=== PATIENT | female | born 1940 | race Caucasian/White ===

== ENCOUNTER 2021-12-31 20:04 | Observation (INO) ==
[2021-12-31] MEDS ORDERED: MoRPHine SULFATE 2 MG/ML CARP IV PRN ×2 (20:21→23:55)
--- NOTE | 2021-12-31 20:24 | Emergency Department Note ---
Impression & Plan Trochanteric fracture of left femur, Fall ED Provider Note NAME: DEV DIGGS AGE: 81 SEX: F : 1940 ARRIVES VIA: Walk-In INFORMANT: Patient, ED PROVIDER(S): Jatinder Larios MD Chief Complaint: Pain, med express referral HPI: Presents due to concern for fall and possible hip fracture as a referral from [facility]. The patient states that she was showing somebody a mower for sale when her dog was out and about she tried to control the dog and her hand got caught in the collar and was pulled to the ground. The patient states that she truck struck her left hip. The patient was slightly immaturely thereafter but did have some difficulty with walking and states that she essentially sat down while trying to move up the stairs. Patient does complain of left hip pain. The patient denies any fevers chills or chest pains. Patient states that she tested positive for COVID on December 24 but otherwise is asymptomatic. Patient denies any nausea vomiting or diarrhea. Patient did not take anything for pain prior to arrival but did present to [employer] where she had an x-ray completed and she was told that she has a hip fracture. ROS: See HPI for pertinent positives and negatives. A total of 10 systems were reviewed and otherwise negative. Past medical history: See below Surgical history: See below Social history: See below Physical Exam: GENERAL: NAD, wearing a mask, non-toxic. EYE EXAM: Normal conjunctiva. PERRL, no anisocoria and EOM's grossly intact w/o pain. NECK: Supple, no nuchal rigidity, no adenopathy, non-tender. No signs of meningismus. LUNGS: Clear to auscultation. Normal chest wall mechanics. HEART: NSR, no MRG. ABDOMEN: Abdomen soft, non-tender, normo-active bowel sounds, no masses, no rebound or guarding. BACK: No CVA TTP. SKIN: No rashes and no bruising. UPPER EXTREMITIES: Upper extremities are grossly normal. LOWER EXTREMITIES: Mild pain over the left hip, no obvious shortening, neurovascular intact distally with good left DP pulse. NEURO EXAM: A&O x3, cranial nerves II-XII grossly intact, normal speech, moves all 4 extremities on command w/o issue. Differential diagnoses: Fracture, subluxation, dislocation, contusion, ligamentous injury, neurovascular, compartment syndrome, rhabdomyolysis, as well as other pathologies. Course: Patient was seen and evaluated the bedside. Full history physical exam was performed. EKG interpreted by me Imaging Studies: Left hip x-ray Superior trochanteric fracture Cardiac monitoring: An order was placed for continuous cardiac monitoring. The monitor shows a rate of 86 with sinus rhythm. MDM: Patient was seen due to concern for hip pain. Blood work was obtained along with hip x-ray. Patient was treated with IV pain medication. Patient is awake and a 10.9 with a normal H&H and platelet count. The patient's kidney function is unremarkable. The patient is COVID-positive. X-ray does show a likely superior trochanteric fracture. I did speak the on-call orthopedist Dr. Cline who stated this was likely nonoperative the patient should be toe- touch weightbearing and that she can follow-up in the office within a week if the patient would choose to go home. Patient does live by her self and states that her home is on 7 levels. I did offer inpatient versus close outpatient follow-up. The patient would prefer inpatient treatment and pain control at this time. I did speak with the on-call hospitalist Dr. Estevez and the patient was admitted to the medicine service. Past Med/Surg History Medical History HLD (hyperlipidemia) Surgical History No pertinent past surgical history Social History Smoking Status: Unknown if ever smoked Preferred Language: Kinyarwanda Feels Safe at Home: Yes Allergies Allergies Allergy/AdvReac Type Severity Reaction Status Date / Time adhesive tape Allergy Rash Verified 12/31/21 20:26 celecoxib [From Celebrex] Allergy Hives Verified 12/31/21 20:26 Home Meds Home Medications Medication Instructions Recorded Confirmed rosuvastatin 40 mg tablet (Crestor) 40 mg PO QPM 12/31/21 12/31/21 Results & Data (ED) Vital Signs Vital Signs - 24 hr 12/31/21 20:12 12/31/21 20:24 Temperature 37.0 C Temperature Source Oral Pulse Rate 89 Pulse Rate [Apical] 83 Respiratory Rate 20 16 Respiratory Effort / Characteristics Non-Labored Spontaneous Non-Labored Spontaneous Respiratory Depth Normal Normal Respiratory Pattern Regular Blood Pressure 163/112 H Blood Pressure [Right Arm] 163/112 H Blood Pressure Mean 129 Blood Pressure Mean [Right Arm] 129 Blood Pressure Position [Right Arm] Sitting Pulse Oximetry 95 95 Oxygen Delivery Method Room Air Room Air Sepsis New/Unexplained Change in Mental Status N/A Sepsis Action Taken by Nursing No Action Required Home Medications Current Medication List: was personally reviewed by me Laboratory Data Attestation: I reviewed the patient's lab results. Result diagrams: 12/31/21 20:12/31/21 20: Lab Results 12/31/21 12/31/21 12/31/21 Range/Units ::: WBC 10.94 H (4.8-10.8) K/uL RBC 5.23 (4.2-5.4) M/uL Hgb 15.6 (12.0-16.0) g/dL Hct 44.4 (37-47) % MCV 84.9 (80-100) fL MCH 29.8 (25-34) pg MCHC 35.1 (32-36) g/dL RDW Std Deviation 39.8 (36.4-46.3) fL RDW Coeff of Tong 12.7 (11.5-14.5) % Plt Count 199 (130-400) K/uL MPV 10.7 H (7.4-10.4) fL Immature Gran % (Auto) 0.4 % Neut % (Auto) 80.7 % Lymph % (Auto) 12.5 % [place] % (Auto) 6.2 % Eos % (Auto) 0.1 % Baso % (Auto) 0.1 % Neut # (Auto) 8.83 H (1.4-6.5) K/uL Lymph # (Auto) 1.37 (1.2-3.4) K/uL [place] # (Auto) 0.68 H (0.11-0.59) K/uL Eos # (Auto) 0.01 (0-0.5) K/uL Baso # (Auto) 0.01 (0-0.2) K/uL Immature Gran # (Auto) 0.04 H (0.00-0.02) K/uL PT 10.9 (9.0-12.0) Seconds INR 1.0 (0.9-1.1) APTT 26.7 (21.0-31.0) Seconds PTT Ratio 1.0 Sodium 142 (136-145) mmol/L Potassium 3.8 (3.5-5.1) mmol/L Chloride 107 (98-107) mmol/L Carbon Dioxide 26 (21-32) mmol/L Anion Gap 9 (3-11) BUN 21 (6-23) mg/dl Creatinine 0.78 (0.6-1.2) mg/dl Est Cr Clr Drug Dosing Not Reportable Est GFR ( Amer) 83.8 ml/min Est GFR (Non-Af Amer) 72.3 ml/min BUN/Creatinine Ratio 26.9 H (10-20) Glucose 108 H (70-99(Fasting)) mg/dl Calcium 9.7 (8.5-10.1) mg/dl Total Bilirubin 1.3 H (0.2-1.0) mg/dl AST 22 (13-39) U/L ALT 32 (7-52) U/L Alkaline Phosphatase 48 (34-104) U/L Total Protein 7.4 (6.0-8.3) gm/dl Albumin 4.6 (3.4-5.0) gm/dl Globulin 2.8 (2.5-4.0) gm/dl Albumin/Globulin Ratio 1.6 (0.9-2) SARS-CoV-2, RNA, NAAT (NEGATIVE) 12/31/21 Range/Units 20:35 WBC (4.8-10.8) K/uL RBC (4.2-5.4) M/uL Hgb (12.0-16.0) g/dL Hct (37-47) % MCV (80-100) fL MCH (25-34) pg MCHC (32-36) g/dL RDW Std Deviation (36.4-46.3) fL RDW Coeff of Tong (11.5-14.5) % Plt Count (130-400) K/uL MPV (7.4-10.4) fL Immature Gran % (Auto) % Neut % (Auto) % Lymph % (Auto) % [place] % (Auto) % Eos % (Auto) % Baso % (Auto) % Neut # (Auto) (1.4-6.5) K/uL Lymph # (Auto) (1.2-3.4) K/uL [place] # (Auto) (0.11-0.59) K/uL Eos # (Auto) (0-0.5) K/uL Baso # (Auto) (0-0.2) K/uL Immature Gran # (Auto) (0.00-0.02) K/uL PT (9.0-12.0) Seconds INR (0.9-1.1) APTT (21.0-31.0) Seconds PTT Ratio Sodium (136-145) mmol/L Potassium (3.5-5.1) mmol/L Chloride (98-107) mmol/L Carbon Dioxide (21-32) mmol/L Anion Gap (3-11) BUN (6-23) mg/dl Creatinine (0.6-1.2) mg/dl Est Cr Clr Drug Dosing Est GFR ( Amer) ml/min Est GFR (Non-Af Amer) ml/min BUN/Creatinine Ratio (10-20) Glucose (70-99(Fasting)) mg/dl Calcium (8.5-10.1) mg/dl Total Bilirubin (0.2-1.0) mg/dl AST (13-39) U/L ALT (7-52) U/L Alkaline Phosphatase (34-104) U/L Total Protein (6.0-8.3) gm/dl Albumin (3.4-5.0) gm/dl Globulin (2.5-4.0) gm/dl Albumin/Globulin Ratio (0.9-2) SARS-CoV-2, RNA, NAAT POSITIVE A* (NEGATIVE) Administered Medications Discontinued Medications Morphine Sulfate (Morphine Sulfate 4 Mg/Ml 1 Ml Carp\Vial) 4 mg IV NOW STA Stop: 12/31/21 21:49 Last Admin: 12/31/21 22:00 Dose: 4 mg Documented by: [id number] Discharge Plan Visit Data Chief Complaint: Hip Pain Stated Complaint: FRACTURED R HIP, REF BY [employer] ED Provider: Jatinder Larios Discharge Problem: Trochanteric fracture of left femur, Fall Forms Stand Alone Forms: [employer] Prescriptions Prescriptions: No Action rosuvastatin [Crestor] 40 mg tablet 40 mg PO QPM RF: 0 Referrals Referrals: PCP,NO [Primary Care Provider] -
[2021-12-31 20:39] LABS: Basophils # (auto) 0.01 K/uL (0-0.2); Basophils % (auto) 0.1 %; Eosinophils # (auto) 0.01 K/uL (0-0.5); Eosinophils % (auto) 0.1 %; Hematocrit (blood only) 44.4 % (37-47); Hemoglobin 15.6 g/dL (12.0-16.0); Immature Granulocytes # (auto) 0.04 K/uL (0.00-0.02); Immature Granulocytes % (auto) 0.4 %; Lymphocytes # (auto) 1.37 K/uL (1.2-3.4); Lymphocytes % (auto) 12.5 %; Mean Corpuscular Hemoglobin 29.8 pg (25-34); Mean Corpuscular Hgb Conc 35.1 g/dL (32-36); Mean Corpuscular Volume 84.9 fL (80-100); Mean Platelet Volume 10.7 fL (7.4-10.4); Monocytes # (auto) 0.68 K/uL (0.11-0.59); Monocytes % (auto) 6.2 %; Neutrophils # (auto) 8.83 K/uL (1.4-6.5); Neutrophils % (auto) 80.7 %; Platelet Count 199 K/uL (130-400); RDW Coefficient of Variation 12.7 % (11.5-14.5); RDW Standard Deviation 39.8 fL (36.4-46.3); Red Blood Count 5.23 M/uL (4.2-5.4); White Blood Count 10.94 K/uL (4.8-10.8)
[2021-12-31 20:53] LABS: Alanine Aminotransferase 32 U/L (7-52); Albumin Globulin Ratio 1.6 (0.9-2); Albumin Level 4.6 gm/dl (3.4-5.0); Alkaline Phosphatase 48 U/L (34-104); Anion Gap 9 (3-11); Aspartate Aminotransferase 22 U/L (13-39); BUN Creatinine Ratio 26.9 (10-20); Bilirubin,Total 1.3 mg/dl (0.2-1.0); Blood Urea Nitrogen 21 mg/dl (6-23); Calcium 9.7 mg/dl (8.5-10.1); Carbon Dioxide 26 mmol/L (21-32); Chloride 107 mmol/L (98-107); Est GFR (African American) 83.8 ml/min; Est GFR (Non-African American) 72.3 ml/min; Globulin 2.8 gm/dl (2.5-4.0); Glucose 108 mg/dl (70-99(Fasting)); Potassium 3.8 mmol/L (3.5-5.1); Sodium 142 mmol/L (136-145); Total Protein 7.4 gm/dl (6.0-8.3)
[2021-12-31 20:56] LABS: Partial Thromboplastin Time 26.7 Seconds (21.0-31.0); Prothrombin Time 10.9 Seconds (9.0-12.0)
[2021-12-31] MEDS ORDERED: MoRPHine SULFATE 4 MG/ML 1 ML CARP\\VIAL IV STA ×2 (21:48→23:52)
--- NOTE | 2021-12-31 23:51 | History & Physical Report ---
Date of Service December 31, 2021 Assessment & Plan (1) Trochanteric fracture of left femur: Plan: Secondary to fall Situational hypertension Recent COVID-19 infection Hyperlipidemia on statin Rx [facility] consult Re: Traumatic fracture of the left femur (ER provider already in touch with Dr. Morfin. Nonoperative intervention and toe-touch weightbearing left lower lower extremity as per recommendations.) COVID-19 precautions as per current hospital protocol PT OT eval in a.m. DVT prophylaxis per Lovenox subcu Full code Text document was generated using [id number] voice recognition software. It may contain grammatical or spelling errors. Kindly contact undersigned for clarification of any documentation item in question. History of Present Illness Chief Complaint: Fall, left hip pain Primary Care Provider: Dr. Siegel from [place], [place] History obtained from patient and records. Medical history significant for hyperlipidemia. Last week, patient had dry cough and sore throat symptoms. Outpatient COVID-19 test was positive. Patient completed COVID-19 vaccination. Symptoms resolved with conservative management at home. Patient fell to ground as she was trying to control her dog at home. Achy left hip pain, trouble walking. No head trauma, no chest pain, no SOB, no LOC. Patient brought to the ER for evaluation. 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 Allergies Allergy/AdvReac Type Severity Reaction Status Date / Time adhesive tape Allergy Rash Verified 12/31/21 20:26 celecoxib [From Celebrex] Allergy Hives Verified 12/31/21 20:26 Home Medications Medication Instructions Recorded Confirmed Type rosuvastatin 40 mg tablet (Crestor) 40 mg PO QPM 12/31/21 12/31/21 History Past Med/Surg History Medical History HLD (hyperlipidemia) Surgical History No pertinent past surgical history Social History Smoking Status: Never smoker Second Hand Exposure: No; Do You Dip or Chew Tobacco: No; Tobacco Cessation Education Requested by Patient: No Hx Substance Use: No Preferred Language: Ukrainian [employer]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 Beliefs That Will Affect Care: None Current Living Situation: Alone Other Information That Helps Us Care for You: No Feels Safe at Home: Yes Safety Concerns: Feels Safe At This Time Review of Systems Review of Systems: As per HPI, all other systems reviewed and negative Physical Exam Physical Exam: GENERAL: Slightly uncomfortable, slightly anxious, pleasant, looks younger for stated age, no respiratory distress SKIN: Normal color, warm HEENT: [place] palpebral conjunctivae, no ptosis, moist buccal mucosa NECK : Supple, no tenderness CHEST : CTA, no tenderness HEART : RRR, no obvious murmurs ABDOMEN: Some distention, nontender EXTREMITIES : No LE swelling, left hip tenderness NEUROLOGIC : Coherent, no facial asymmetry, gait and stance not assessed Results & Data Results & Data ([facility]) Vital Signs (Past 12 Hours) Vital Signs Temp Pulse Pulse Resp BP BP Pulse Ox 12/31/21 22:04 83 18 163/112 H 98 12/31/21 20:24 83 16 163/112 H 95 12/31/21 20:12 37.0 C 89 20 163/112 H 95 Laboratory Results Laboratory Results WBC 10.94 K/uL (4.8-10.8) H 12/31/21 20: RBC 5.23 M/uL (4.2-5.4) 12/31/21 20: Hgb 15.6 g/dL (12.0-16.0) 12/31/21 20: Hct 44.4 % (37-47) 12/31/21 20: MCV 84.9 fL (80-100) 12/31/21 20: MCH 29.8 pg (25-34) 12/31/21 20: MCHC 35.1 g/dL (32-36) 12/31/21 20: RDW Std Deviation 39.8 fL (36.4-46.3) 12/31/21 20: RDW Coeff of Tong 12.7 % (11.5-14.5) 12/31/21 20: Plt Count 199 K/uL (130-400) 12/31/21 20:22 MPV 10.7 fL (7.4-10.4) H 12/31/21 20: Immature Gran % (Auto) 0.4 % 12/31/21 20: Neut % (Auto) 80.7 % 12/31/21 20: Lymph % (Auto) 12.5 % 12/31/21 20: [place] % (Auto) 6.2 % 12/31/21 20: Eos % (Auto) 0.1 % 12/31/21 20: Baso % (Auto) 0.1 % 12/31/21 20: Neut # (Auto) 8.83 K/uL (1.4-6.5) H 12/31/21 20: Lymph # (Auto) 1.37 K/uL (1.2-3.4) 12/31/21 20: [place] # (Auto) 0.68 K/uL (0.11-0.59) H 12/31/21 20: Eos # (Auto) 0.01 K/uL (0-0.5) 12/31/21 20: Baso # (Auto) 0.01 K/uL (0-0.2) 12/31/21: Immature Gran # (Auto) 0.04 K/uL (0.00-0.02) H 12/31/21 20: PT 10.9 Seconds (9.0-12.0) 12/31/21 20: INR 1.0 (0.9-1.1) 12/31/21 20: APTT 26.7 Seconds (21.0-31.0) 12/31/21 20: PTT Ratio 1.0 12/31/21 20: Sodium 142 mmol/L (136-145) 12/31/21: Potassium 3.8 mmol/L (3.5-5.1) 12/31/21 20: Chloride 107 mmol/L (98-107) 12/31/21 20: Carbon Dioxide 26 mmol/L (21-32) 12/31/21 20: Anion Gap 9 (3-11) 12/31/21 20: BUN 21 mg/dl (6-23) 12/31/21 20: Creatinine 0.78 mg/dl (0.6-1.2) 12/31/21: Est Cr Clr Drug Dosing Not Reportable 12/31/21: Est GFR ( Amer) 83.8 ml/min 12/31/21 20:22 Est GFR (Non-Af Amer) 72.3 ml/min 12/31/21 20:22 BUN/Creatinine Ratio 26.9 (10-20) H 12/31/21 20:22 Glucose 108 mg/dl (70-99(Fasting)) H 12/31/21 20:22 Calcium 9.7 mg/dl (8.5-10.1) 12/31/21 20:22 Magnesium 2.0 mg/dl (1.7-2.4) 12/31/21 20:22 Total Bilirubin 1.3 mg/dl (0.2-1.0) H 12/31/21 20:22 AST 22 U/L (13-39) 12/31/21 20:22 ALT 32 U/L (7-52) 12/31/21 20:22 Alkaline Phosphatase 48 U/L (34-104) 12/31/21 20:22 Total Protein 7.4 gm/dl (6.0-8.3) 12/31/21 20:22 Albumin 4.6 gm/dl (3.4-5.0) 12/31/21 20:22 Globulin 2.8 gm/dl (2.5-4.0) 12/31/21 20:22 Albumin/Globulin Ratio 1.6 (0.9-2) 12/31/21 20:22 SARS-CoV-2, RNA, NAAT POSITIVE (NEGATIVE) A* 12/31/21 20:35 Diagnostic Findings Pelvic x-ray as per my interpretation left greater trochanter fracture EKG as per my interpretation:Rate 80, NSR, normal axis, T wave abnormality septal leads (1) Trochanteric fracture of left femur Encounter type: initial encounter Fracture type: closed Qualified Code(s): S72.102A - Unspecified trochanteric fracture of left femur, initial encounter for closed fracture
[2021-12-31] MEDS ORDERED: PROMETHAZINE HCL 12.5 MG in SODIUM CHLORIDE 0.9% 50 ML IV PRN (23:58)
[2021-12-31] MEDS ORDERED: MoRPHine SULFATE 4 MG/ML 1 ML CARP\\VIAL IV PRN (23:58)
[2022-01-01] MEDS ORDERED: Patient's HEIGHT &/or WEIGHT Needed SCH (01:30)
[2022-01-01] MEDS: oxyCODONE HCL IR 5 MG TAB (IMMEDIATE RELEASE) PO PRN ×2 (02:05→09:18)
--- NOTE | 2022-01-01 07:20 | XRay Report ---
XR hip LT 2V w pelvis CLINICAL HISTORY: Status post fall with reported left hip fracture. COMPARISON STUDY: No previous studies for comparison. TECHNIQUE: AP pelvis and 2 left hip views FINDINGS: Bones: There is evidence for a fracture through the superior aspect of the greater trochanter of the femur. Mild retraction of the fracture fragment is present suggesting mild avulsion. The femoral neck itself is intact. No intertrochanteric fractures identified. There is no lytic or blastic lesion. Joints: The joint spaces are maintained. The bones are in anatomic alignment. Soft tissues: There is no focal soft tissue abnormality. There is no radiopaque foreign body. IMPRESSION: 1. Evidence for a mildly displaced, avulsion fracture involving the superior aspect of the greater tr ochanter of the left femur. 2. No femoral neck fracture is identified. ACT 112: Negative or not required by law. Electronically signed by: Murali Trotter M.D. 01/01/2022 7:18 AM
[2022-01-01] MEDS: ACETAMINOPHEN 325 MG TAB PO PRN ×2 (07:42→21:25)
[2022-01-01] MEDS: ENOXAPARIN INJ 30 MG/0.3 ML SYR SQ SCH (07:44)
--- NOTE | 2022-01-01 09:43 | Orthopedic Consultation ---
Date of Consultation January 01, 2022 Assessment & Plan (1) Trochanteric fracture of left femur: Patient was seen and evaluated by Dr. Cline today. Her x-rays were reviewed and she was found to have a minimally displaced left greater trochanter fracture in acceptable alignment. Plan would be to treat this conservatively for the time being. Advised that she is allowed to do range of motion of her left hip just avoid any abduction or moving her leg away from her body. She can be toe-touch weightbearing with the assistance of crutches or walker. She states she does have crutches at home. We will obtain a physical therapy evaluation today to assess for safety. She can use ice to her left hip which we will order also. She can use Tylenol, Advil and oxycodone as needed for breakthrough pain. From an orthopedic standpoint she can be discharged when she is medically stable. We will have her call the office tomorrow for an appointment in 10 to 14 days for reassessment. She understands and agrees with the plan. All questions were answered. Thank you for this consultation and please call with further questions. Supervising Physician Co-Signing Physician Notes I saw and examined the patient and agree with above note. For this split-shared visit, I was the primary provider. History of Present Illness Reason for Consultation: Left greater trochanter fracture Attending Physician: Anjali Quinonez MD History of Present Illness Patient is a pleasant 81-year-old female who was at her home yesterday and had her [id number] puppy on a leash. Her puppy got excited and pulled on her and she fell onto her left hip. She had immediate pain. She presented to the emergency room for evaluation. She was having trouble weightbearing. X-rays were obtained and she was found to have a left nondisplaced greater trochanter fracture. She was then admitted by the medical service for pain management. We were asked to see her in consultation for treatment recommendations of the fracture. She denies any numbness or tingling in her left leg. She denies any previous problems with the left hip. She denies any other injuries. Allergies Allergy/AdvReac Type Severity Reaction Status Date / Time adhesive tape Allergy Rash Verified 12/31/21 20:26 celecoxib [From Celebrex] Allergy Hives Verified 12/31/21 20:26 Home Medications Medication Instructions Recorded Confirmed Type rosuvastatin 40 mg tablet (Crestor) 40 mg PO QPM 12/31/21 12/31/21 History Patient History Medical History HLD (hyperlipidemia) Surgical History No pertinent past surgical history Social History Smoking Status: Never smoker Second Hand Exposure: No; Do You Dip or Chew Tobacco: No; Tobacco Cessation Education Requested by Patient: No Hx Substance Use: No 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 No distal edema. Distal sensation is normal. She is able to flex her hip actively with some mild discomfort on the outer aspect of her left thigh. She has no tenderness with palpation of the left knee or lower leg. Ankle strength is 5/5. Distal pulses 1+. Nontender throughout the medial or anterior posterior thigh. Just laterally tender to palpation. Skin is healthy. No evidence of ecchymosis. No erythema or warmth. Results & Data ([facility]) Vital Signs (Past 12 Hours) Vital Signs Temp Pulse Pulse Resp BP Pulse Ox 01/01/22 07:37 36.7 C 86 16 150/87 H 96 01/01/22 01:20 36.8 C 86 17 165/85 H 96 01/01/22 00:53 82 18 144/83 H 97 12/31/21 22:04 83 18 163/112 H 98 Laboratory Results 12/31/21 12/31/21 12/31/21 Range/Units 20:35 20:22 20:22 WBC (4.8-10.8) K/uL RBC (4.2-5.4) M/uL Hgb (12.0-16.0) g/dL Hct (37-47) % MCV (80-100) fL MCH (25-34) pg MCHC (32-36) g/dL RDW Std Deviation (36.4-46.3) fL RDW Coeff of Tong (11.5-14.5) % Plt Count (130-400) K/uL MPV (7.4-10.4) fL Immature Gran % (Auto) % Neut % (Auto) % Lymph % (Auto) % [place] % (Auto) % Eos % (Auto) % Baso % (Auto) % Neut # (Auto) (1.4-6.5) K/uL Lymph # (Auto) (1.2-3.4) K/uL [place] # (Auto) (0.11-0.59) K/uL Eos # (Auto) (0-0.5) K/uL Baso # (Auto) (0-0.2) K/uL Immature Gran # (Auto) (0.00-0.02) K/uL PT (9.0-12.0) Seconds INR (0.9-1.1) APTT (21.0-31.0) Seconds PTT Ratio Sodium 142 (136-145) mmol/L Potassium 3.8 (3.5-5.1) mmol/L Chloride 107 (98-107) mmol/L Carbon Dioxide 26 (21-32) mmol/L Anion Gap 9 (3-11) BUN 21 (6-23) mg/dl Creatinine 0.78 (0.6-1.2) mg/dl Est Cr Clr Drug Dosing Not Reportable Est GFR ( Amer) 83.8 ml/min Est GFR (Non-Af Amer) 72.3 ml/min BUN/Creatinine Ratio 26.9 H (10-20) Glucose 108 H (70-99(Fasting)) mg/dl Calcium 9.7 (8.5-10.1) mg/dl Magnesium 2.0 (1.7-2.4) mg/dl Total Bilirubin 1.3 H (0.2-1.0) mg/dl AST 22 (13-39) U/L ALT 32 (7-52) U/L Alkaline Phosphatase 48 (34-104) U/L Total Protein 7.4 (6.0-8.3) gm/dl Albumin 4.6 (3.4-5.0) gm/dl Globulin 2.8 (2.5-4.0) gm/dl Albumin/Globulin Ratio 1.6 (0.9-2) SARS-CoV-2, RNA, NAAT POSITIVE A* (NEGATIVE) 12/31/21 12/31/21 Range/Units 20:22 20:22 WBC 10.94 H (4.8-10.8) K/uL RBC 5.23 (4.2-5.4) M/uL Hgb 15.6 (12.0-16.0) g/dL Hct 44.4 (37-47) % MCV 84.9 (80-100) fL MCH 29.8 (25-34) pg MCHC 35.1 (32-36) g/dL RDW Std Deviation 39.8 (36.4-46.3) fL RDW Coeff of Tong 12.7 (11.5-14.5) % Plt Count 199 (130-400) K/uL MPV 10.7 H (7.4-10.4) fL Immature Gran % (Auto) 0.4 % Neut % (Auto) 80.7 % Lymph % (Auto) 12.5 % [place] % (Auto) 6.2 % Eos % (Auto) 0.1 % Baso % (Auto) 0.1 % Neut # (Auto) 8.83 H (1.4-6.5) K/uL Lymph # (Auto) 1.37 (1.2-3.4) K/uL [place] # (Auto) 0.68 H (0.11-0.59) K/uL Eos # (Auto) 0.01 (0-0.5) K/uL Baso # (Auto) 0.01 (0-0.2) K/uL Immature Gran # (Auto) 0.04 H (0.00-0.02) K/uL PT 10.9 (9.0-12.0) Seconds INR 1.0 (0.9-1.1) APTT 26.7 (21.0-31.0) Seconds PTT Ratio 1.0 Sodium (136-145) mmol/L Potassium (3.5-5.1) mmol/L Chloride (98-107) mmol/L Carbon Dioxide (21-32) mmol/L Anion Gap (3-11) BUN (6-23) mg/dl Creatinine (0.6-1.2) mg/dl Est Cr Clr Drug Dosing Est GFR ( Amer) ml/min Est GFR (Non-Af Amer) ml/min BUN/Creatinine Ratio (10-20) Glucose (70-99(Fasting)) mg/dl Calcium (8.5-10.1) mg/dl Magnesium (1.7-2.4) mg/dl Total Bilirubin (0.2-1.0) mg/dl AST (13-39) U/L ALT (7-52) U/L Alkaline Phosphatase (34-104) U/L Total Protein (6.0-8.3) gm/dl Albumin (3.4-5.0) gm/dl Globulin (2.5-4.0) gm/dl Albumin/Globulin Ratio (0.9-2) SARS-CoV-2, RNA, NAAT (NEGATIVE) Diagnostic Findings XR hip LT 2V w pelvis CLINICAL HISTORY: Status post fall with reported left hip fracture. COMPARISON STUDY: No previous studies for comparison. TECHNIQUE: AP pelvis and 2 left hip views FINDINGS: Bones: There is evidence for a fracture through the superior aspect of the greater trochanter of the femur. Mild retraction of the fracture fragment is present suggesting mild avulsion. The femoral neck itself is intact. No intertrochanteric fractures identified. There is no lytic or blastic lesion. Joints: The joint spaces are maintained. The bones are in anatomic alignment. Soft tissues: There is no focal soft tissue abnormality. There is no radiopaque foreign body. IMPRESSION: 1. Evidence for a mildly displaced, avulsion fracture involving the superior aspect of the greater trochanter of the left femur. 2. No femoral neck fracture is identified. (1) Trochanteric fracture of left femur Encounter type: initial encounter Fracture type: closed Qualified Code(s): S72.102A - Unspecified trochanteric fracture of left femur, initial encounter for closed fracture
--- NOTE | 2022-01-01 15:04 | Electrocardiogram Report ---
Test Reason : Blood Pressure : / mmHG Vent. Rate : 080 BPM Atrial Rate : 080 BPM P-R Int : 160 ms QRS Dur : 080 ms QT Int : 386 ms P-R-T Axes : 052 -09 048 degrees QTc Int : 445 ms Normal sinus rhythm Nonspecific T wave abnormality Abnormal ECG No previous ECGs available Confirmed by Geoff Watson ([id number]) on 01/01/2022 3:03:29 PM Referred By: REFERRED SELF Confirmed By:Geoff Watson
[2022-01-01] MEDS: IBUPROFEN 600 MG TAB PO PRN (16:15)
--- NOTE | 2022-01-01 18:23 | Hospitalist Progress Note ---
Date of Service January 01, 2022 Assessment & Plan (1) Trochanteric fracture of left femur: Plan: #. Trochanteric fracture of left femur Mechanical fall while trying to control her dog at home. Fell on left side, hit left hip. Trouble walking. Admitting hip x-ray positive for mildly displaced, avulsion fracture involving the superior aspect of the greater trochanter of the left femur. Orthopedics evaluated, conservative management. Pain management. Physical therapy. Ice compression. Prescription for standard walker with wheels will be provided. PT recommends continued PT, patient denies prescription for physical therapy. #. Recent COVID infection: Patient vaccinated, not booster dose. No respiratory symptoms. Continue to monitor. On room air. DVT prophylaxis: Lovenox Full code Admission and Anticipated Discharge Date Admission Date: December 31, 2021 Subjective Patient seen and examined at bedside as a follow-up of trochanteric fracture of left femur. Patient was lying in bed, on room air, NAD, reports better pain control at left hip. Patient reports eating and moving bowels okay. Patient denies any headache/dizziness/chest pain/palpitations/belly pain/other review of symptoms. Patient is diagnosed with COVID, no respiratory symptoms. Patient is vaccinated but not boosted. Physical Exam Physical Exam: GENERAL: Alert and oriented x3. NAD, on RA. HEENT: No pallor, no icterus. Pupils equal, round and reactive to light. Oral mucosa moist. NECK: No JVD, no neck masses. HEART: S1 and S2 heard. Regular rate and rhythm. No murmur, no gallop. RESPIRATORY SYSTEM: Normal AP diameter. No accessory muscle use. No wheezing, no crackles. ABDOMEN: Soft, bowel sounds present, nontender, no distention. CENTRAL NERVOUS SYSTEM: No facial droop. Speech is clear. Obeys simple c ommands. Moves extremities. EXTREMITIES: No edema, no erythema seen. Left hip pain w/ ROM. Results & Data Results & Data ([facility]) Vital Signs (Past 12 Hours) Vital Signs Temp Pulse Resp BP Pulse Ox 01/01/22 16:20 36.7 C 77 16 158/90 H 96 01/01/22 07:37 36.7 C 86 16 150/87 H 96 (1) Trochanteric fracture of left femur Encounter type: initial encounter Fracture type: closed Qualified Code(s): S72.102A - Unspecified trochanteric fracture of left femur, initial encounter for closed fracture
[2022-01-01] MEDS ORDERED: ROSUVASTATIN CALCIUM 20 MG TAB PO SCH (21:00)
[2022-01-02 07:07] LABS: Hematocrit (blood only) 44.4 % (37-47); Hemoglobin 15.1 g/dL (12.0-16.0); Mean Corpuscular Hemoglobin 29.3 pg (25-34); Mean Platelet Volume 10.9 fL (7.4-10.4); Platelet Count 225 K/uL (130-400); RDW Coefficient of Variation 12.8 % (11.5-14.5); RDW Standard Deviation 40.8 fL (36.4-46.3); Red Blood Count 5.16 M/uL (4.2-5.4); White Blood Count 8.02 K/uL (4.8-10.8)
[2022-01-02 07:30] LABS: BUN Creatinine Ratio 22.1 (10-20); Calcium 9.4 mg/dl (8.5-10.1); Creatinine Clr Calc Pharmacy 53.3 ml/min; Est GFR (African American) 85.1 ml/min; Est GFR (Non-African American) 73.4 ml/min; Magnesium 2.1 mg/dl (1.7-2.4); Potassium 3.6 mmol/L (3.5-5.1)
[2022-01-02] MEDS: IBUPROFEN 600 MG TAB PO PRN (08:34)
[2022-01-02] MEDS: ENOXAPARIN INJ 30 MG/0.3 ML SYR SQ SCH (08:35)
[2022-01-02] MEDS ORDERED: oxyCODONE/ACETAMINOPHEN 5mg/325mg TAB PO PRN (10:17)
--- NOTE | 2022-01-02 10:28 | Discharge Summary ---
Date of Service January 02, 2022 Admission HPI Per Admitting Provider History obtained from patient and records. Medical history significant for hyperlipidemia. Last week, patient had dry cough and sore throat symptoms. Outpatient COVID-19 test was positive. Patient completed COVID-19 vaccination. Symptoms resolved with conservative management at home. Patient fell to ground as she was trying to control her dog at home. Achy left hip pain, trouble walking. No head trauma, no chest pain, no SOB, no LOC. Patient brought to the ER for evaluation. 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 Admission Exam Per Admitting Provider GENERAL: Slightly uncomfortable, slightly anxious, pleasant, looks younger for stated age, no respiratory distress SKIN: Normal color, warm HEENT: [place] palpebral conjunctivae, no ptosis, moist buccal mucosa NECK : Supple, no tenderness CHEST : CTA, no tenderness HEART : RRR, no obvious murmurs ABDOMEN: Some distention, nontender EXTREMITIES : No LE swelling, left hip tenderness NEUROLOGIC : Coherent, no facial asymmetry, gait and stance not assessed Principal Diagnosis Trochanteric fracture of left femur Recent COVID-19 infection Discharge Exam GENERAL: Alert and oriented x3. NAD, on RA. HEENT: No pallor, no icterus. Pupils equal, round and reactive to light. Oral mucosa moist. NECK: No JVD, no neck masses. HEART: S1 and S2 heard. Regular rate and rhythm. No murmur, no gallop. RESPIRATORY SYSTEM: Normal AP diameter. No accessory muscle use. No wheezing, no crackles. ABDOMEN: Soft, bowel sounds present, nontender, no distention. CENTRAL NERVOUS SYSTEM: No facial droop. Speech is clear. Obeys simple commands. Moves extremities. EXTREMITIES: No edema, no erythema seen. Left hip pain w/ ROM. Discharge Data Allergies Allergy/AdvReac Type Severity Reaction Status Date / Time adhesive tape Allergy Rash Verified 12/31/21 20:26 celecoxib [From Celebrex] Allergy Hives Verified 12/31/21 20:26 Consultations 12/31/21 21:48 ED Decision to Admit Stat 12/31/21 23:58 Consult Orthopedic Surgery Routine Hospital Course (1) Trochanteric fracture of left femur: #. Trochanteric fracture of left femur Mechanical fall while trying to control her dog at home. Fell on left side, hit left hip. Trouble walking. Admitting hip x-ray positive for mildly displaced, avulsion fracture involving the superior aspect of the greater trochanter of the left femur. Orthopedics evaluated, conservative management. Pain management. Physical therapy. Ice compression. Follow-up with orthopedics in 10 to 14 days upon discharge. Prescription for standard walker with wheels will be provided. Ambulation per orthopedics recommendation. PT recommends continued PT, patient denies prescription for physical therapy. Pain management with Motrin [and Protonix], Percocet for severe pain. #. Recent COVID infection: Patient vaccinated, not booster dose. No respiratory symptoms. Continue to monitor. On room air. DVT prophylaxis: Lovenox Full code Patient being discharged to home with following instruction at the point of discharge: Follow-up with your primary care physician within a week time. Follow-up with your orthopedic doctor in 10 to 14 days. Take Motrin 3 times a day for pain, use Protonix for the duration of Motrin use. You can take Percocet up to 3 times a day for severe pain. Continue with physical therapy. Ambulation instruction as per orthopedics. If your pain is not controlled, you will have to get in touch with your primary care physician for further evaluation/prescription on your pain medication. Take your medications as prescribed. Maintain home isolation for COVID for 10 days from the date of a diagnosis of COVID. Total Time Total Time Spent Total Time Spent (In Minutes): 35 Discharge Plan Discharge Items Patient Disposition: Home - Self-Care Reason For Visit: FEM FX, COVID Discharge Diagnosis: Trochanteric fracture of left femur Recent COVID-19 infection Activity: Per Instructions section Weightbearing: Left toe touch Weightbearing Comment: with walker or crutches Non-emergency contact: Primary Care Provider Call non-emergency contact if: you have any medication questions, your symptoms worsen, your pain is not controlled, your pain is worsening and your temperature is above 101 Follow-up/Referrals: Xavier Cline MD [Physician] - (call for an appointment to be evaluated again in approximately 2 weeks) PCP,NO [Primary Care Provider] - Diet: Heart Healthy Addtl Attending Provider Instructions: Follow-up with your primary care physician within a week time. Follow-up with your orthopedic doctor in 10 to 14 days. Take Motrin 3 times a day for pain, use Protonix for the duration of Motrin use. You can take Percocet up to 3 times a day for severe pain. Continue with physical therapy. Ambulation instruction as per orthopedics. If your pain is not controlled, you will have to get in touch with your primary care physician for further evaluation/prescription on your pain medication. Take your medications as prescribed. Maintain home isolation for COVID for 10 days from the date of a diagnosis of COVID. Home Isolation COVID-19 Instructions The following information about Home Isolation is from the CDC Website: https://www.cdc.gov/coronavirus/2019-ncov/hcp/lyforill-ymusqvi-rplbfd.html Stay home except to get medical care People who are mildly ill with COVID-19 are able to isolate at home during their illness. You should restrict activities outside your home, except for getting medical care. Do not go to work, school, or public areas. Avoid using public transportation, ride-sharing, or taxis. Separate yourself from other people and animals in your home People: As much as possible, you should stay in a specific room and away from other people in your home. Also, you should use a separate bathroom, if available. Animals: You should restrict contact with pets and other animals while you are sick with COVID-19, just like you would around other people. Although there have not been reports of pets or other animals becoming sick with COVID-19, it is still recommended that people sick with COVID-19 limit contact with animals until more information is known about the virus. When possible, have another member of your household care for your animals while you are sick. If you are sick with COVID-19, avoid contact with your pet, including petting, snuggling, being kissed or licked, and sharing food. If you must care for your pet or be around animals while you are sick, wash your hands before and after you interact with pets and wear a face mask. Call ahead before visiting your doctor If you have a medical appointment, call the healthcare provider and tell them that you have or may have COVID-19. This will help the healthcare providers office take steps to keep other people from getting infected or exposed. Wear a face mask You should wear a face mask when you are around other people (e.g., sharing a room or vehicle) or pets and before you enter a healthcare providers office. If you are not able to wear a face mask (for example, because it causes trouble breathing), then people who live with you should not stay in the same room with you, or they should wear a face mask if they enter your room. Cover your coughs and sneezes Cover your mouth and nose with a tissue when you cough or sneeze. Throw used tissues in a lined trash can. Immediately wash your hands with soap and water for at least 20 seconds or, if soap and water are not available, clean your hands with an alcohol-based hand lead custodian that contains at least 60% alcohol. Clean your hands often Wash your hands often with soap and water for at least 20 seconds, especially after blowing your nose, coughing, or sneezing; going to the bathroom; and before eating or preparing food. If soap and water are not readily available, use an alcohol-based hand lead custodian with at least 60% alcohol, covering all surfaces of your hands and rubbing them together until they feel dry. Soap and water are the best option if hands are visibly dirty. Avoid touching your eyes, nose, and mouth with unwashed hands. Avoid sharing personal household items You should not share dishes, drinking glasses, cups, eating utensils, towels, or bedding with other people or pets in your home. After using these items, they should be washed thoroughly with soap and water. Clean all high-touch surfaces everyday High touch surfaces include counters, tabletops, doorknobs, bathroom fixtures, toilets, phones, keyboards, tablets, and bedside tables. Also, clean any surfaces that may have blood, stool, or body fluids on them. Use a household cleaning spray or wipe, according to the label instructions. Labels contain instructions for safe and effective use of the cleaning product including precautions you should take when applying the product, such as wearing gloves and making sure you have good ventilation during use of the product. Monitor your symptoms Seek prompt medical attention if your illness is worsening (e.g., difficulty breathing).Beforeseeking care, call your healthcare provider and tell them that you have, or are being evaluated for, COVID-19. Put on a face mask before you enter the facility. These steps will help the healthcare providers office to keep other people in the office or waiting room from getting infected or exposed. Ask your healthcare provider to call the local or state health department. Persons who are placed under active monitoring or facilitated self- monitoring should follow instructions provided by their local health department or occupational health professionals, as appropriate. When working with your local health department check their available hours. If you have a medical emergency and need to call 911, notify the dispatch personnel that you have, or are being evaluated for COVID-19. If possible, put on a face mask before emergency medical services arrive. Discontinuing home isolation Patients with confirmed COVID-19 should remain under home isolation precautions until the risk of secondary transmission to others is thought to be low. The decision to discontinue home isolation precautions should be made on a [id number] basis, in consultation with healthcare providers and [facility] and [facility] health departments. Addtl Policy And Planning Manager Provider Instructions: Toe-touch weightbearing left lower extremity with the assistance of crutches or walker. Ice to left hip as needed for pain and swelling. Elevate left lower extremity as needed for pain and swelling. Tylenol and ibuprofen as needed for pain in your left hip. May take any other prescribed pain medications as needed for breakthrough pain. Allowed for full range of motion of your left knee and ankle. Avoid moving your left hip outward away from your body. You may otherwise do gentle range of motion of the left hip. You may be comfortable either lying flat in bed, sitting in a chair to sleep or lying on your right side. Pending Studies at Discharge: No Stand-Alone Forms: [employer], Smoking Cessation Medications and DC Order Prescriptions: New acetaminophen 325 mg Tablet 650 mg PO Q8H PRN (Reason: pain) Qty: 60 RF: 0 ibuprofen 600 mg Tablet 600 mg PO TID PRN (Reason: pain) 7 Days Qty: 21 RF: 0 oxycodone-acetaminophen [Percocet] 5-325 mg Tablet 1 tab PO Q8H PRN (Reason: severe pain) Qty: 10 RF: 0 pantoprazole 40 mg Tablet,Delayed Release (Dr/Ec) 40 mg PO QAM 7 Days Qty: 7 RF: 0 Continued rosuvastatin [Crestor] 40 mg tablet 40 mg PO QPM RF: 0 Discharge Orders: Discharge Order (Routine); Ordered 01/02/22 Ordered By: Anjali Quinonez Admission Data Admit Date/Time: 12/31/21 23:55 Attending Provider: Anjali Quinonez Admit Provider: Seng Estevez Primary Care Provider: PCP,NO Other Providers: Seng Estevez ; Xavier Cline
[2022-01-02] MEDS ORDERED: PANTOprazole 40 MG TAB PO SCH (10:30)
--- NOTE | 2022-01-05 14:36 | Coding Query ---
CODING QUERY To promote full compliance with coding requirements relating to patient care, provider participation is requested in all cases of label coder uncertainty. Please assist us with the question(s) below: Coding Question(s): Your help is needed in order to determine the COVID-19 diagnosis on this admission. The ER documents, "Patient states that she tested positive for COVID on December 24 but otherwise is asymptomatic", and, "The patient is COVID-positive", and the H&P documents, "Last week, patient had dry cough and sore throat symptoms. Outpatient COVID-19 test was positive. Patient completed COVID-19 vaccination. Symptoms resolved with conservative management at home", and the Progress Note on 01/01 documents, "Recent COVID infection: Patient vaccinated, not booster dose. No respiratory symptoms. Continue to monitor" and , "Patient is diagnosed with COVID, no respiratory symptoms" and the Discharge Summary documents recent Covid infection as in the Progress Note and also documents, "Maintain home isolation for COVID for 10 days from the date of a diagnosis of COVID". Please specify below, in your clinical opinion. ( x ) the patient is COVID-19 positive diagnosed prior to admission and was monitored during this admission for asymptomatic COVID-19 infection. ( ) the patient had recent history only of COVID-19 and was fully recovered and non-infectious during the admission. ( ) Other: Please Specify Physician's Response(s): Thank you Maria Luz Hendrix Principal Diagnosis: "that condition established after study, to be chiefly responsible for occasioning the admission of the patient to the hospital for care." Co-Existing Principal Diagnosis: "when two or more diagnoses equally meet the criteria for principal diagnosis as determined by the circumstances of admission, diagnostic work up, and/or therapy provided, and the Alphabetic Index, Tabular List, or another coding guideline does not provide sequencing direction, any one of the diagnoses may be sequenced first." "When the physician has documented what appears to be a current diagnosis in the body of the record, but has not included the diagnosis in the final diagnostic statement, the physician should be asked whether the diagnosis should be added." (Source [facility]oding [facility] 2 QTR90. p3-4) MTDD
== END 2022-01-02 11:26 | disposition home or self-care (01) | DRG 535 ==
LOC: ED 20:04 → INTOOBSV 23:55 → 3N 23:55